=== PATIENT | male | born 1945 | race Caucasian/White ===

== ENCOUNTER 2016-12-15 07:01 | Day surgery (SDC) | payer MEDICARE, OTHER ==
[~2016-12-15] VITALS: Ht 170.2 cm; Wt 74.8 kg
[2016-12-15] MEDS ORDERED: HYDROCHLOROTH12.5 M1 PO (07:31)
[2016-12-15] MEDS ORDERED: ZOCOR20 MG PO (07:31)
[2016-12-15] MEDS ORDERED: TENORMIN25 MG PO (07:32)
[2016-12-15] MEDS ORDERED: SYNTHROID100 MCG PO (07:33)
[2016-12-15 07:48] LABS: HEMATOCRIT 46.1 % (42.0-54.0); HEMOGLOBIN 16.4 g/dL (13.5-17.5); MCH 33.9 pg (26.0-34.0); MCHC 35.6 g/dL (31.0-37.0); MCV 95.2 fL (80.0-100.0); MEAN PLATELET VOLUME 9.4 fL (7.4-10.4); RBC 4.84 10x6/uL (4.20-6.10); RDW 12.4 % (11.5-14.5); WBC 4.6 10x3/uL (4.8-10.8)
[2016-12-15 07:59] VITALS: BP 134/102; Ht 170.2 cm; Wt 74.8 kg
[2016-12-15 08:03] LABS: ANION GAP 13.1 mmol/L (8-16); CALCIUM 9.3 mg/dL (8.5-10.1); CARBON DIOXIDE 28.6 mmol/L (21.0-32.0); CREATININE - SERUM 1.2 mg/dL (0.6-1.3); POTASSIUM - SERUM 3.7 mmol/L (3.5-5.1)
--- NOTE | 2016-12-16 18:58 | OP ---
PATIENT NAME: SIERRA HORTON JR MEDICAL RECORD: [id number] :45 LOCATION:D.OPS ADMISSION DATE: SURGEON: CAROLINE DAMON MD DATE OF OPERATION: 12/15/2016 SURGEON: Caroline Damon MD ANESTHESIA: TIVA per REPLANTER. REFERRING PHYSICIAN: Pastor Israel MD PREOPERATIVE DIAGNOSIS: Screening colonoscopy. POSTOPERATIVE DIAGNOSIS: Screening colonoscopy. OPERATION PERFORMED: Colonoscopy to the cecum. OPERATIVE FINDINGS: A few scattered diverticula, no polyps or other mucosal lesions. PREOPERATIVE NOTE: Mr. Horton was a 70-year-old white male patient referred by Dr. Israel for screening colonoscopy. His last colonoscopy was over 7 years ago. There is a remote history of colon polyps. He is asymptomatic at this time. There is no family history of colorectal malignancy. DESCRIPTION OF PROCEDURE: Under TIVA and lateral decubitus position, the patient was examined and noted to have a large external hemorrhoid which was not inflamed. There was no evidence of hemorrhoidal thrombosis. No perianal sepsis or inflammation. Anal sphincter tone, seemed to be lax. The prostate was small and without nodules. The rectum was emptied. The Olympus colonoscope was inserted and advanced to the cecum with little difficulty and then slowly withdrawn over a period greater than 6 minutes. The cecum was photographed for documentation and I found no lesions, other than a few scattered diverticula in the left colon. The scope was retroflexed in the rectum and no other pathology seen and the scope was withdrawn. The patient tolerated the procedure quite well and was returned to the outpatient department. He will be allowed to go home later today and will not need a followup appointment with me in the office, but he is encouraged to call if he has any problems or concerns of course. He is given my cell phone number [phone] to call in case he should have any concerns or problems after hours over the weekend. TRANSINT:[id number] Voice Confirmation ID: [id number] DOCUMENT ID: [id number] CAROLINE DAMON MD at 1858 CC: PASTOR ISRAEL MD [id number] DICTATION DATE: 12/15/16 1016 RECORDS AND INFORMATION MANAGER: 12/15/16 1646 [facility] 12/15/16 [id number] [place] [address]
== END 2016-12-15 11:45 | disposition home or self-care (01) ==
LOC: D.OPS 07:01
PROVIDERS: Anesthesiology
DX: Z12.11 Encounter for screening for malignant neoplasm of colon (principal); K57.30 Diverticulosis of large intestine without perforation or abscess without bleeding; Z86.010 Personal history of colon polyps; K64.4 Residual hemorrhoidal skin tags; I10 Essential (primary) hypertension; E78.5 Hyperlipidemia, unspecified; E03.9 Hypothyroidism, unspecified; Z88.0 Allergy status to penicillin; Z79.899 Other long term (current) drug therapy; Z87.891 Personal history of nicotine dependence